=== PATIENT | female | born 1960 | race African-American/Black ===

== ENCOUNTER 2016-06-22 06:30 | Emergency (ER) | payer OTHER ==
[2016-06-22 07:36] LABS: #Basophils 0.2 thou/uL (0.0-0.2); #Eosinphils 1.1 thou/uL (0.0-0.7); #Lymphocytes 3.9 thou/uL (1.20-3.40); #Monocytes 0.6 thou/uL (0.11-0.59); #Neutrophils 8.4 thou/uL (1.40-6.50); %Basophils 1.1 % (0.0-1.0); %Eosinophils 7.8 % (0.0-10.0); %Lymphocytes 27.2 % (21.0-51.0); %Monocytes 4.4 % (0.0-10.0); %Neutrophils 59.5 % (42.0-75.0); Hemoglobin 14.3 g/dL (12.0-16.0); Mean Corpuscular HGB CONC 35.1 g/dL (32.0-36.0); Mean Corpuscular Hemoglobin 30.9 pg (27.0-31.0); Mean Corpuscular Volume 88.2 fl (81.0-99.0); Mean Platelet Volume 10.3 fL (7.4-10.4); Platelet Count 271 thou/uL (130-400); RBC Distribution Width 12.6 % (11.5-14.5); Red Blood Cell (RBC) Count 4.62 mill/uL (4.20-5.40); White Blood Cell (WBC) Count 14.2 thou/uL (4.8-10.8)
[2016-06-22] MEDS ORDERED: cefTRIAXone\\ROCEPHIN 1 GM VIAL ONE ×2 (07:40→08:17)
[2016-06-22] MEDS ORDERED: methylPREDNISolone Sod Succ/PF 125 MG/2 ML VIAL ONE (07:40)
[2016-06-22] MEDS ORDERED: Dexamethasone 10 MG/ML VIAL ONE (07:40)
[2016-06-22 07:41] LABS: ALT (SGPT) 21 U/L (0-55); AST (SGOT) 24 U/L (5-34); Albumin 4.6 g/dL (3.5-5.0); Alkaline Phosphatase 85 U/L (40-150); Anion Gap 21 mmol/L (10-20); BUN (Urea Nitrogen) 6 mg/dL (9.8-20.1); Bilirubin, Total 0.5 mg/dL (0.2-1.2); Calc. Creatinine Clearance 0 mL/min (70-130); Calcium 9.4 mg/dL (7.8-10.44); Carbon Dioxide 22 mmol/L (22-29); Chloride 102 mmol/L (98-107); Estimated GFR-MDRD 89; Globulin 3.1 g/dL (2.4-3.5); Glucose 106 mg/dL (70-105); Potassium 4.6 mmol/L (3.5-5.1); Protein, Total 7.7 g/dL (6.0-8.3); Sodium 140 mmol/L (136-145)
[2016-06-22] MEDS ORDERED: Sodium Chloride 0.9% 100 ML BAG ONE (07:43)
[2016-06-22] MEDS ORDERED: Sodium Chloride 0.9% 1,000 ML BAG ONE (07:43)
[2016-06-22] MEDS ORDERED: Magnesium Sulfate 2 GM/NS 0.9% 50 ML BAG ONE (07:44)
--- NOTE | 2016-06-22 07:46 | RAD ---
TWO VIEWS CHEST: HISTORY: Dyspnea. FINDINGS: PA and lateral views of the chest were obtained. The lungs are well aerated. No evidence of active intrathoracic disease seen. No evidence of effusions, pneumonia, or pneumothorax is seen. IMPRESSION: Unremarkable 2 views chest. POS: [facility]
[2016-06-22] MEDS ORDERED: AMOXicillin 250 MG CAP ONE (08:17)
[2016-06-22] MEDS ORDERED: Benzonatate 100 MG CAP ONE (08:17)
--- NOTE | 2016-06-22 09:31 | ERRECORD ---
[facility] EM[facility]GENCY RECORD HPI SHORTNESS OF BREATH (07:07 LLDO) CHIEF COMPLAINT: Patient presents for evaluation of shortness of breath, Denies chest pain, Patient presents for evaluation of been sick about 3 weeks. just over 2 weeks ago was seen elsewhere and given a shot of steroids and a Z-lis. no better at all. frequent cough and wheezing most of the time. very feverish at times but temp not taken. headache and sore throat, but thinks s.t. d.t. harsh coughing. general fatigue and malaise. has not had this problem before. HISTORIAN: History provided by patient. LOCATION: Symptoms are generalized. QUALITY: Symptoms described as tightness, Symptoms described as wheezing. SEVERITY: Maximum severity of symptoms moderate, Currently symptoms are moderate, Maximum severity of pain rated as 7/10, Current severity of pain rated as 2/10. TIME COURSE: Gradual onset of symptoms, Symptoms are worsening, are constant. ASSOCIATED WITH: Associated with cough, Associated with dyspnea on exertion, Associated with fever, Associated with upper respiratory infection, Associated with wheezing. EXACERBATED BY: Patient's condition exacerbated by deep breaths, Patient's condition exacerbated by exercise, Patient's condition exacerbated by lying flat. RELIEVED BY: Patient's condition relieved by nothing. RISK FACTORS: No coronary artery disease risk factors, No thoracic aortic dissection risk factors, No pulmonary embolism risk factors. ROS CONSTITUTIONAL: Historian reports fatigue, reports malaise, reports weakness. (07:11 LLDO) EYES: Negative eye review of systems, Historian denies eye pain, denies eye redness, denies eye discharge. (07:17 LLDO) ENT: Historian reports sore throat. (07:11 LLDO) CARDIOVASCULAR: Historian reports dyspnea on exertion. (07:11 LLDO) RESPIRATORY: Historian reports cough, reports sputum. described as thick, yellow, Historian reports wheezing. (07:11 LLDO) GI: Historian reports anorexia, reports appetite changes, denies constipation, denies diarrhea, reports nausea, denies vomiting. (07:11 LLDO) GENITOURINARY FEMALE: Negative genitourinary review of systems, Historian denies dysuria, denies frequency, denies urgency. (07:17 LLDO) MUSCULOSKELETAL: Historian reports myalgias. (07:11 LLDO) SKIN: Negative skin review of systems, Historian denies cellulitis, denies rash, denies skin changes, denies skin lesions. (07:17 LLDO) NEUROLOGIC: Historian denies confusion, denies dizziness, denies &a-1R&a+25V*p+0X*p3428Z*c152B*c15G*c2P*p-0X&a-25V&a+1RName: Shivani Paz : 1960 F55 MedRec: [id number] AcctNum: [id number] Prepared: ThuJun 23, 2016 05:43 by Interface Page 1 of 5 pMD [facility] RECORD dysphasia, denies focal weakness, denies gait changes, reports headache, denies irritability, denies lethargy, denies mental status changes. (07:17 LLDO) HEMO/LYMPHATIC: Normal hematologic/lymphatic system review, Historian denies abnormal blood clotting, denies gum bleeding, denies petechiae. (07:17 LLDO) ALLERGIC/IMMUNOLOGIC: Normal allergy/immunologic system review, Historian denies eczema, denies environmental allergies, denies food allergies. (07:17 LLDO) PSYCHIATRIC: Negative psychiatric review of systems, Historian denies alcohol abuse, denies anxiety, denies depression, denies drug abuse, denies hallucinations. (07:17 LLDO) NOTES: All systems reviewed, negative except as described above. (07:11 LLDO) PAST MEDICAL HISTORY MEDICAL HISTORY: No past medical history. (06:46 JDEA) FEMALE SURGICAL HISTORY: Patient has no surgical history. (06:46 JDEA) PSYCHIATRIC HISTORY: No previous psychiatric history. (06:46 JDEA) SOCIAL HISTORY: Patient denies alcohol use, Patient denies drug use, Patient has no smoking history, Lives at home, with family. (06:46 JDEA) NOTES: Nursing records reviewed, Agree with nursing records, Medication list reviewed. (07:16 LLDO) KNOWN ALLERGIES NKDA CURRENT MEDICATIONS (06:41 JDEA) None VITAL SIGNS VITAL SIGNS: BP: 146/78, Pulse: 107, Resp: 22, Pain: 2, O2 sat: 97 on Room Air, Time: 06/22/2016 06:38. (06:38 JDEA) BP: 151/85, Pulse: 95, Resp: 21, Temp: 99 (Tympanic), Pain: 0, O2 sat: 97 on Room Air, Time: 06/22/2016 07:00. (07:00 JPER) BP: 112/82, Pulse: 95, Resp: 25, O2 sat: 98 on Room Air, Time: 06/22/2016 07:15. (07:15 JPER) BP: 126/76, Pulse: 78, Resp: 21, O2 sat: 98 on Room Air, Time: 06/22/2016 07:30. (07:30 JPER) BP: 125/64, Pulse: 78, Resp: 21, O2 sat: 99 on Room Air, Time: 06/22/2016 07:45. (07:45 JPER) BP: 117/77, Pulse: 96, Resp: 20, Temp: 98.4 (Tympanic), O2 sat: 98 on Room Air, Time: 06/22/2016 08:00. (08:00 JPER) BP: 119/55, Pulse: 77, Resp: 13, Temp: 98.4 (Tympanic), O2 sat: 99 on Room Air, Time: 06/22/2016 08:15. (08:15 JPER) BP: 119/69, Pulse: 76, Resp: 15, Temp: 98.4 (Tympanic), O2 sat: 99 on Room Air, Time: 06/22/2016 09:00. (09:00 JPER) &a-1R&a+25V*p+0X*t0414P*c152B*c15G*c2P*p-0X&a-25V&a+1RName: Shivani Paz : 1960 F55 MedRec: [id number] AcctNum: [id number] Prepared: ThuJun 23, 2016 05:43 by Interface Page 2 of 5 pMD [facility] REC[facility] PHYSICAL EXAM CONSTITUTIONAL: Vital Signs Reviewed, Patient afebrile, Pulse, tachycardic, 107, Blood pressure normal, Respiratory rate normal, Normal pulse oximetry, Patient appears, uncomfortable, Patient appears, in moderate pain distress, Patient alert and oriented to person, place and time, Nursing notes reviewed. (07:14 LLDO) HEAD: Head exam normal, Head exam included findings of head atraumatic, normocephalic. (07:17 LLDO) EYES: Eye exam normal, Eye exam included findings of eyelids normal to inspection, Pupils equally round and reactive to light, Extraocular muscles intact. (07:17 LLDO) ENT: Ear exam normal, Nose exam normal, Pharynx, injected bilaterally, with swelling bilaterally, Uvula exam normal, Sinus exam included findings of frontal sinuses normal, maxillary sinuses normal. (07:14 LLDO) NECK: Neck exam included findings of normal range of motion, Trachea midline, Thyroid normal, no meningeal signs, Cervical adenopathy, diffuse, multiple nodes, tender, swollen. (07:14 LLDO) RESPIRATORY CHEST: Respiratory exam included findings of, mild respiratory distress, Wheezing present, Rales present, Breath sounds not absent, Breath sounds not diminished, Chest exam included findings of chest movement symmetrical, Chest expansion equal, no tenderness, WHEEZES MOD AND DIFFUSE AND RALES MODERATE AND DIFFUSE. (07:14 LLDO) CARDIOVASCULAR: Cardiovascular exam included findings of, rate tachycardic, rhythm regular. (07:14 LLDO) ABDOMEN FEMALE: Abdominal exam normal, Abdominal exam included findings of abdomen nontender, Bowel sounds normal, no peritoneal signs. (07:17 LLDO) BACK: Back exam normal, Back exam included findings of normal inspection, range of motion normal. (07:17 LLDO) UPPER EXTREMITY: Upper extremity exam normal, Upper extremity exam included findings of inspection normal, Range of motion normal. (07:17 LLDO) LOWER EXTREMITY: Lower extremity exam normal, Lower extremity exam included findings of inspection normal, Range of motion normal. (07:17 LLDO) NEURO: Neuro exam findings include patient oriented to person, place and time, Speech normal, Gait normal, Memory normal, Cranial nerves intact, Deep tendon reflexes normal, no focal motor deficits, no focal sensory deficits, no cerebellar deficits, no nystagmus. (07:17 LLDO) SKIN: Skin exam normal, Skin exam included findings of skin warm, dry, and normal in color, no rash. (07:17 LLDO) PSYCHIATRIC: Psychiatric exam normal, Psychiatric exam included findings of patient oriented to person place and time, Normal affect. (07:17 LLDO) RADIOLOGYINTERPRETATION (08:09 LLDO) &a-1R&a+25V*p+0X*q9859K*c152B*c15G*c2P*p-0X&a-25V&a+1RName: Shivani Paz : 1960 F55 MedRec: [id number] AcctNum: [id number] Prepared: ThuJun 23, 2016 05:43 by Interface Page 3 of 5 pMD [facility] RECORD RADIO SPORTSCASTER: Preliminary review of x-rays by, Radiologist, neg cxr, 2 view. MEDICATION ADMINISTRATION SUMMARY Drug Name: Guanakito Perles, Dose Ordered: 200 mg, Route: Oral, Status: Given, Time: 08:15 06/22/2016, Drug Name: amoxicillin, Dose Ordered: 500 mg, Route: Oral, Status: Given, Time: 08:15 06/22/2016, Drug Name: Rocephin intravenous, Dose Ordered: 1 g, Route: IV Piggy Back, Status: Given, Time: 07:57 06/22/2016, Drug Name: magnesium sulfate in water, Dose Ordered: 2 g, Route: IV Piggy Back, Status: Given, Time: 07:53 06/22/2016, Drug Name: Decadron injection, Dose Ordered: 10 mg, Route: IV Push, Status: Given, Time: 07:20 06/22/2016, Drug Name: Solu-MEDROL Mix-O-Vial, Dose Ordered: 125 mg, Route: IV Push, Status: Given, Time: 07:10 06/22/2016, Drug Name: DuoNeb, Dose Ordered: 1 inhalation, Route: Nebulize, Status: Given, Time: 07:05 06/22/2016, Drug Name: *sodium chloride 0.9 % intravenous, Dose Ordered: 1 L, Route: IV Fluid Infusion, Status: Given, Time: 07:05 06/22/2016, *Additional information available in notes, Detailed record available in Medication Service section. DOCTOR NOTES (08:09 LLDO) TEXT: pt says she feels vastly better and is now breathing easily with good air flow. exam still shows slight end-exp wheeze but much better than on arrival. to continue albuterol tabs but will add oral steroids and a stronger cough suppressant and new abx. PROBLEM LIST No recorded problems DIAGNOSIS (08:12 LLDO) FINAL: PRIMARY: asthmatic bronchitis. PRESCRIPTION (08:13 LLDO) amoxicillin: CAPSULE (HARD, SOFT, ETC.) : 500 mg : ORAL : Quantity: 1 Unit: cap(s) Route: ORAL Schedule: 3 times a day Dispense: 30 May substitute. Refills: No Refills . NOTES: No Refills. Phenergan-Codeine: SYRUP : : ORAL : Quantity: 1-2 Unit: teaspoon Route: ORAL Schedule: every 4 hours prn Dispense: 120 Unit: mL May substitute. Refills: 1 . NOTES: ^s=No Refills No Refills. predniSONE oral: TABLET : 20 mg : ORAL : Quantity: * Unit: Route: ORAL Schedule: See Notes Dispense: 2O May substitute. Refills: No Refills . &a-1R&a+25V*p+0X*r6653Y*c152B*c15G*c2P*p-0X&a-25V&a+1RName: Shivani Paz : 1960 F55 MedRec: [id number] AcctNum: [id number] Prepared: ThuJun 23, 2016 05:43 by Interface Page 4 of 5 pMD [facility] RECORD NOTES: 3 TABS PER DAY FOR 3 DAYS, THEN 2 TABS PER DAY FOR 3 DAYS, THEN ONE TAB PER DAY UNTIL GONE No Refills. DISPOSITION PATIENT: Disposition Type: Discharge, Disposition: *Discharge Home. (08:12 LLDO) Patient left the department. (09:27 ADDY) Clemens: JOSIAH=JERMAINE Reynolds, Claudia DALY=JERMAINE Melendrez, Suzanne LLDO=MD Dana, Gian &a-1R&a+25V*p+0X*w2069F*c152B*c15G*c2P*p-0X&a-25V&a+1RName: Shivani Paz : 1960 F55 MedRec: [id number] AcctNum: [id number] Prepared: ThuJun 23, 2016 05:43 by Interface Page 5 of 5 pMD MTDD
--- NOTE | 2016-06-22 09:38 | PICIS ---
[facility] EMERGENCY RECORD TRIAGE (ThuJun 22, 2016 06:39 JDEA) TRIAGE NOTES: in for c/o shortness of breath and wheezing, states was seen recently for same complaints and told she had bronchitis. (ThuJun 22, 2016 06:39 JDEA) PATIENT: NAME: Shivani Paz, AGE: 55, GENDER: female, : Sat 1960, TIME OF GREET: ThuJun 22, 2016 06:31, PREFERRED LANGUAGE: Armenian, ETHNICITY: Not or , [facility]: [facility], SSN: [id number], Zip Code: [address], KG WEIGHT: 86.18, PHONE: , , , PERSON ID: [id number], PCP: Valentín MAK BARRY. ([place] Jun 22, 2016 06:39 JDEA) COMPLAINT: SOB. ([place] Jun 22, 2016 06:39 JDEA) ADMISSION: URGENCY: 2 Emergent, ADMISSION SOURCE: Home, TRANSPORT: Walk-in, BED: TRIAGE. ([place] Jun 22, 2016 06:39 JDEA) IMMUNIZATIONS: Flu vaccine up to date, Tetanus immunization up to date, Pneumococcal vaccine not up to date. (06:46 JDEA) TRIAGE SCREENING: Patient denies suicidal ideation, Patient denies presence of domestic violence. (06:46 JDEA) LMP: LMP: Not Applicable. (06:46 JDEA) PROVIDERS: TRIAGE NURSE: Claudia Reynolds RN. ([place] Jun 22, 2016 06:39 JDEA) VITAL SIGNS: BP 146/78, Pulse 107, Resp 22, Pain 2, O2 Sat 97, on Room Air, Time 06/22/2016 06:38. (06:38 JDEA) KNOWN ALLERGIES NKDA CURRENT MEDICATIONS (06:41 JDEA) None VITAL SIGNS VITAL SIGNS: BP: 146/78, Pulse: 107, Resp: 22, Pain: 2, O2 sat: 97 on Room Air, Time: 06/22/2016 06:38. (06:38 JDEA) BP: 151/85, Pulse: 95, Resp: 21, Temp: 99 (Tympanic), Pain: 0, O2 sat: 97 on Room Air, Time: 06/22/2016 07:00. (07:00 JPER) BP: 112/82, Pulse: 95, Resp: 25, O2 sat: 98 on Room Air, Time: 06/22/2016 07:15. (07:15 JPER) BP: 126/76, Pulse: 78, Resp: 21, O2 sat: 98 on Room Air, Time: 06/22/2016 07:30. (07:30 JPER) BP: 125/64, Pulse: 78, Resp: 21, O2 sat: 99 on Room Air, Time: 06/22/2016 07:45. (07:45 JPER) BP: 117/77, Pulse: 96, Resp: 20, Temp: 98.4 (Tympanic), O2 sat: 98 on Room Air, Time: 06/22/2016 08:00. (08:00 JPER) BP: 119/55, Pulse: 77, Resp: 13, Temp: 98.4 (Tympanic), O2 sat: 99 on Room Air, Time: 06/22/2016 08:15. (08:15 JPER) BP: 119/69, Pulse: 76, Resp: 15, Temp: 98.4 (Tympanic), O2 sat: 99 on Room Air, Time: 06/22/2016 09:00. (09:00 JPER) NURSING ASSESSMENT: RESPIRATORY /CHEST (06:43 JDEA) CONSTITUTIONAL: Complex assessment performed, Patient arrives ambulatory, Gait steady, History obtained from patient, Patient &a-1R&a+25V*p+0X*f8670X*c152B*c15G*c2P*p-0X&a-25V&a+1RName: Marielena Paza : 1960 F55 MedRec: [id number] AcctNum: [id number] Prepared: ThuJun 23, 2016 05:49 by Interface Page 1 of 11 pMD [facility] EMERGENCY RECORD appears comfortable, Patient cooperative, Patient alert, Oriented to person, place and time, Skin warm, Skin dry, Skin normal in color, Mucous membranes pink, Mucous membranes moist, Patient complains of SHORTNESS OF BREATH, in for c/o shortness of breath and wheezing, states was seen recently for same complaints and told she had bronchitis. PAIN: on a scale 0-10 patient rates pain as 2, DENIES PAIN, STATES FEELS SHORT OF BREATH AT THIS TIME. RESPIRATORY/CHEST: Lungs auscultated, Breath sounds with wheezing, audibly, Respiratory assessment findings include respiratory effort easy, Respirations regular, Conversing normally, Neck and chest exam findings include trachea midline, Chest expansion equal, Chest movement symmetrical, no signs of distress, Associated with cough, dry, non-productive, Associated with fever, STATES HAS FELT WARM OFF AND ON THIS PAST WEEK. ENT: Ear assessment findings include ear normal to inspection, Nasal assessment findings include nose normal to inspection, Sinuses normal, Nasal mucosa normal, Mouth and throat assessment findings include mouth inspection normal, Uvula normal, Tonsils normal, Mucous membranes pink, and moist, Able to swallow, Speech normal. NOTES: Patient tolerated procedure well. SAFETY: Side rails up, Cart/Stretcher in lowest position, Call light within reach, Hospital ID band on. NURSING PROCEDURE: LUNG SPLITTER (06:41 JDEA) PATIENT IDENTIFIER: Patient actively involved in identification process, Patient's identity verified by patient stating name, Patient's identity verified by patient stating date, Patient's identity verified by hospital ID bracelet. LUNG SPLITTER: Cardiac monitoring indicated for ER INDICATION, Patient placed on prepress stripper, Patient placed on non-invasive blood pressure monitor, Patient placed on continuous pulse oximetry. FOLLOW-UP: After procedure, alarms set and on. NOTES: Patient tolerated procedure well. SAFETY: Side rails up, Cart/Stretcher in lowest position, Call light within reach, Hospital ID band on. NURSING PROCEDURE: DISCHARGE NOTE (09:10 JPER) DISCHARGE: Patient discharged to home, ambulating without assistance, driving self, unaccompanied, Summary of Care printed/ provided, Patient requested and was provided an electronic copy of Discharge Instructions, Transition record given to patient, Discharge instructions given to patient, Prescriptions given and instructions on side effects given, Above person(s) verbalized understanding of discharge instructions and follow-up care, Patient treated and evaluated by physician. BELONGINGS: Belongings remain with patient, Valuables remain with patient. NOTES: Emotional support needed and given, Patient tolerated procedure well. &a-1R&a+25V*p+0X*r1300D*c152B*c15G*c2P*p-0X&a-25V&a+1RName: Shivani Paz : 1960 F55 MedRec: [id number] AcctNum: [id number] Prepared: ThuJun 23, 2016 05:49 by Interface Page 2 of 11 [facility] EMERGENCY RECORD NURSING PROCEDURE: EKG CHART (07:45 JPER) PATIENT IDENTIFIER: Patient's identity verified by patient stating name, Patient's identity verified by hospital ID bracelet. EKG: EKG indicated for SOB, 12 lead EKG performed on the left chest, done by BERKLEY DEAN, first EKG. FOLLOW-UP: After procedure, EKG for interpretation given to Dr. CORTEZ. NOTES: Emotional support needed and given. NURSING PROCEDURE: IV PATIENT IDENITIFIER: Patient's identity verified by patient stating name, Patient's identity verified by hospital ID bracelet. (07:00 JPER) Patient's identity verified by patient stating name, Patient's identity verified by hospital ID bracelet. (09:10 JPER) IV SITE 1: IV therapy indicated for hydration, IV therapy indicated for medication administration, IV therapy indicated for lab draw, IV established, to the left hand, using a 20 gauge catheter, in one attempt, IV site prepped with chloroprep, Saline lock established, Labs drawn at time of placement, labeled in the presence of the patient and sent to lab, Blood cultures drawn at time of placement, labeled in the presence of the patient and sent to lab. (07:00 JPER) FOLLOW-UP SITE 1: After procedure, sterile transparent dressing applied. (07:00 JPER) After procedure, no drainage at IV site, After procedure, no swelling at IV site, After procedure, no redness at IV site, IV discontinued, due to patient being discharged, catheter intact. (09:10 JPER) NOTES: Emotional support needed and given, Patient tolerated procedure well. (07:00 JPER) Emotional support needed and given. (09:10 JPER) SAFETY: Side rails up, Cart/Stretcher in lowest position, Family at bedside, Call light within reach, Hospital ID band on. (07:00 JPER) NURSING PROCEDURE: NURSE NOTES NURSES NOTES: Notes: Report to [facility] at this time, pt in bed, no change from previous, denies needs for further assist at this time. (06:48 JDEA) Notes: Report to [facility] at this time, pt in bed, no change from previous, denies needs for further assist at this time. (06:49 JDEA) ORDER DETAILS Order Name: B type Natriuretic Peptide, Status: Active, Time: 06:50 06/22/2016, User: AMEYA, - Ordered for: MD Cortez Lloyd, - Entered by: MD Cortez Lloyd - Sun Jun 22, 2016 06:50, - Quantity: 1, &a-1R&a+25V*p+0X*n3794Q*c152B*c15G*c2P*p-0X&a-25V&a+1RName: Shivani Paz : 1960 F55 MedRec: [id number] AcctNum: [id number] Prepared: ThuJun 23, 2016 05:49 by Interface Page 3 of 11 [facility] EMERGENCY RECORD Order Name: CBC with Differential, Status: Active, Time: 06:49 06/22/2016, User: AMEYA, - Ordered for: MD Cortez Lloyd, - Entered by: MD Cortez Lloyd - Sun Jun 22, 2016 06:49, - Quantity: 1, Order Name: Comprehensive Metabolic Panel, Status: Active, Time: 06:49 06/22/2016, User: LL, - Ordered for: MD Cortez Lloyd, - Entered by: MD Cortez Lloyd - Sun Jun 22, 2016 06:49, - Quantity: 1, Order Name: EKG 12 Lead in Emergency Room, Status: Active, Time: 06:50 06/22/2016, User: LL, - Ordered for: MD Cortez Lloyd, - Entered by: MD Cortez Lloyd - Sun Jun 22, 2016 06:50, - Quantity: 1, Order Name: ERRT * Smal Vol Neb Initial Trmt, Status: Active, Time: 06:48 06/22/2016, User: AMEYA, - Ordered for: MD Cortez Lloyd, - Entered by: MD Cortez Lloyd - Sun Jun 22, 2016 06:48, - Quantity: 1, Order Name: ERRT Small Vol Neb Sub Trmt, Status: Active, Time: 06:48 06/22/2016, User: AMEYA, - Ordered for: MD Cortez Lloyd, - Entered by: MD Cortez Lloyd - Sun Jun 22, 2016 06:48, - Quantity: 1, Order Name: SALINE LOCK, Status: Done, Time: 07:43 06/22/2016, User: JPJOSE, - Ordered for: MD Cortez Lloyd, - Entered by: MD Cortez Lloyd - Sun Jun 22, 2016 06:50, - Quantity: 1, Order Name: XR Chest Pa & Lat STANDARD, Status: Active, Time: 06:49 06/22/2016, User: AMEYA, - Ordered for: MD Cortez Lloyd, - Entered by: MD Cortez Lloyd - Sun Jun 22, 2016 06:49, - Quantity: 1. MEDICATION ADMINISTRATION SUMMARY Drug Name: Tessalon Perles, Dose Ordered: 200 mg, Route: Oral, Status: Given, Time: 08:15 06/22/2016, Drug Name: amoxicillin, Dose Ordered: 500 mg, Route: Oral, Status: Given, Time: 08:15 06/22/2016, Drug Name: Rocephin intravenous, Dose Ordered: 1 g, Route: IV Piggy Back, Status: Given, Time: 07:57 06/22/2016, Drug Name: magnesium sulfate in water, Dose Ordered: 2 g, Route: IV Piggy Back, Status: Given, Time: 07:53 06/22/2016, Drug Name: Decadron injection, Dose Ordered: 10 mg, Route: IV Push, Status: Given, Time: 07:20 06/22/2016, Drug Name: Solu-MEDROL Mix-O-Vial, Dose Ordered: 125 mg, Route: IV Push, Status: Given, Time: 07:10 06/22/2016, Drug Name: DuoNeb, Dose Ordered: 1 inhalation, Route: Nebulize, &a-1R&a+25V*p+0X*x6762X*c152B*c15G*c2P*p-0X&a-25V&a+1RName: Shivani Paz : 1960 F55 MedRec: [id number] AcctNum: [id number] Prepared: ThuJun 23, 2016 05:49 by Interface Page 4 of 11 pMD [facility] EMERGENCY RECORD Status: Given, Time: 07:05 06/22/2016, Drug Name: *sodium chloride 0.9 % intravenous, Dose Ordered: 1 L, Route: IV Fluid Infusion, Status: Given, Time: 07:05 06/22/2016, *Additional information available in notes, Detailed record available in Medication Service section. MEDICATION SERVICE amoxicillin: Order: amoxicillin (amoxicillin trihydrate) - Dose: 500 mg : Oral Schedule: Now Ordered by: Gian Cortez MD Entered by: MD Sara Stack Jun 22, 2016 08:14 Documented as given by: JERMAINE Huerta Jun 22, 2016 08:15 Patient, Medication, Dose, Route and Time verified prior to administration. Amount given: 500MG, Site: Medication administered P.O., Correct patient, time, route, dose and medication confirmed prior to administration, Patient advised of actions and side-effects prior to administration, Allergies confirmed and medications reviewed prior to administration, Administered by BERKLEY DEAN. Decadron injection: Order: Decadron injection (dexamethasone sod phosphate) - Dose: 10 mg : IV Push Schedule: Now Ordered by: Gian Cortez MD Entered by: MD Sara Stack Jun 22, 2016 06:53 Documented as given by: JERMAINE Huerta Jun 22, 2016 07:20 Patient, Medication, Dose, Route and Time verified prior to administration. Amount given: 10mg, IV SITE #1 IVP, subsequent different medication, Slowly, Catheter placement confirmed via flush prior to administration, IV site without signs or symptoms of infiltration during medication administration, No swelling during administration, No drainage during administration, IV flushed after administration, Correct patient, time, route, dose and medication confirmed prior to administration, Patient advised of actions and side-effects prior to administration, Allergies confirmed and medications reviewed prior to administration, Administered by berkley dean. DuoNeb: Order: DuoNeb (ipratropium bromide/albuterol sulfate) - Dose: 1 inhalation : Nebulize Schedule: Every 5 minutes Repeat: 3 DOSES Ordered by: Gian Cortez MD Entered by: MD Sara Stack Jun 22, 2016 06:53 Documented as given by: JERMAINE Huerta Jun 22, 2016 07:05 Patient, Medication, Dose, Route and Time verified prior to administration. Amount given: 3ml, Site: Medication administered via Hand-held nebulizer, With oxygen, Administered by berkley dean. : Follow Up : PT CONT TO HAVE AUDIBLE WHEEZING TO ALL LAGUERRE. (09:17 JPER) : Follow Up : PT CONT TO HAVE AUDIBLE WHEEZING TO ALL [id number] PT CONT TO WHEEZE ALL LAGUERRE. (09:23 JPER) &a-1R&a+25V*p+0X*i8204J*c152B*c15G*c2P*p-0X&a-25V&a+1RName: Shivani Paz : 1960 F55 MedRec: [id number] AcctNum: [id number] Prepared: ThuJun 23, 2016 05:49 by Interface Page 5 of 11 D [facility] EMERGENCY RECORD : Follow Up : PT CONT TO HAVE AUDIBLE WHEEZING TO ALL [id number] PT CONT TO WHEEZE ALL LAGUERRE 0745 LUNG SOUNDS MUCH IMPROVED, WHEEZING DECREASED THROUGHOUT; PT SAYS SHE IS MUCH IMPROVED. (09:24 JPER) magnesium sulfate in water: Order: magnesium sulfate in water (magnesium sulfate/water for injection,sterile) - Dose: 2 g : IV Piggy Back Schedule: Now Ordered by: Gian Cortez MD Entered by: MD Sara Stack Jun 22, 2016 06:59 Documented as given by: JERMAINE Huerta Jun 22, 2016 07:53 Patient, Medication, Dose, Route and Time verified prior to administration. Amount given: 2gm, IV SITE #1 IVPB or drip, subsequent infusion, Premixed, on an IV pump, via secondary tubing, at 150 ml/hr, Catheter placement confirmed via flush prior to administration, IV site without signs or symptoms of infiltration during medication administration, No swelling during administration, No drainage during administration, IV flushed after administration, Correct patient, time, route, dose and medication confirmed prior to administration, Patient advised of actions and side-effects prior to administration, Allergies confirmed and medications reviewed prior to administration, Administered by berkley dean, Patient in position of comfort, Side rails up, Cart in lowest position. : Follow Up : _IV SITE #1:_, Medication infusion discontinued, on ThuJun 22, 2016 08:15, 25 minutes, ., Total amount infused: 2GMS, IV Line flushed after administration. (09:18 JPER) Rocephin intravenous: Order: Rocephin intravenous (ceftriaxone sodium) - Dose: 1 g : IV Piggy Back Schedule: Now Ordered by: Gian Cortez MD Entered by: Gian Cortez MD [place] Jun 22, 2016 06:53 Documented as given by: Suzanne Melendrez RN [place] Jun 22, 2016 07:57 Patient, Medication, Dose, Route and Time verified prior to administration. Amount given: 1gm, IV SITE #1 IVPB or drip, subsequent infusion, IVPB mixed in: 100ml, Fluid: 0.9NS, via primary tubing, on an IV pump, at 200 ml/hr, Catheter placement confirmed via flush prior to administration, IV site without signs or symptoms of infiltration during medication administration, No swelling during administration, No drainage during administration, IV flushed after administration, Correct patient, time, route, dose and medication confirmed prior to administration, Patient advised of actions and side-effects prior to administration, Allergies confirmed and medications reviewed prior to administration, Administered by berkley dean. : Follow Up : _IV SITE #1:_, Medication infusion discontinued, on ThuJun 22, 2016 08:35, 40 minutes, ., Total amount infused: 1GM, IV Line flushed after administration. (09:18 JPER) sodium chloride 0.9 % intravenous: Order: sodium chloride 0.9 % intravenous (0.9 % sodium chloride) - Dose: 1 L : IV Fluid Infusion &a-1R&a+25V*p+0X*w6275B*c152B*c15G*c2P*p-0X&a-25V&a+1RName: Shivani Paz : 1960 F55 MedRec: [id number] AcctNum: [id number] Prepared: ThuJun 23, 2016 05:49 by Interface Page 6 of 11 pMD [facility] EMERGENCY RECORD Notes: (Bolus) after bolus, lock Ordered by: Gian Cortez MD Entered by: Gian Cortez MD [place] Jun 22, 2016 06:54 Documented as given by: Suzanne Melendrez RN [place] Jun 22, 2016 07:05 Patient, Medication, Dose, Route and Time verified prior to administration. Amount given: 1000ml, IV SITE #1 IV fluids established for hydration, IV SITE #1 into left hand, IV SITE #1 1st bag hung, amount 1 Liter hung, IV SITE #1 bolus of 1000 ml established, IV SITE #1 Rate of bolus, 1000 ml/hr, via primary tubing, IV SITE #1 on IV pump, Catheter placement confirmed via flush prior to administration, IV site without signs or symptoms of infiltration during medication administration, No swelling during administration, No drainage during administration, IV flushed after administration, Correct patient, time, route, dose and medication confirmed prior to administration, Patient advised of actions and side-effects prior to administration, Allergies confirmed and medications reviewed prior to administration, Administered by berkley dean. : Follow Up : _IV SITE #1:_, IV fluid infusion discontinued, on [place] Jun 22, 2016 09:10, Total fluid hydration time IV site 1 2 hours, 5 minutes, ., Total amount infused: 1000ML, IV Discontinued with catheter intact. (09:20 JPER) Solu-MEDROL Mix-O-Vial: Order: Solu-MEDROL Mix-O-Vial (methylprednisolone sod succ) - Dose: 125 mg : IV Push Schedule: Now Ordered by: Gian Cortez MD Entered by: MD Sara Stack Jun 22, 2016 06:53 Documented as given by: JERMAINE Huerta Jun 22, 2016 07:10 Patient, Medication, Dose, Route and Time verified prior to administration. Amount given: 125mg, IV SITE #1 IVP, initial medication, Slowly, Catheter placement confirmed via flush prior to administration, IV site without signs or symptoms of infiltration during medication administration, No swelling during administration, No drainage during administration, IV flushed after administration, Correct patient, time, route, dose and medication confirmed prior to administration, Patient advised of actions and side-effects prior to administration, Allergies confirmed and medications reviewed prior to administration, Administered by berkley dean. Tessalon Perles: Order: Tessalon Perles (benzonatate) - Dose: 200 mg : Oral Schedule: Now Ordered by: Gian Cortez MD Entered by: MD Sara Stack Jun 22, 2016 08:14 Documented as given by: JERMAINE Huerta Jun 22, 2016 08:15 Patient, Medication, Dose, Route and Time verified prior to administration. Amount given: 200MG, Site: Medication administered P.O., Correct patient, time, route, dose and medication confirmed prior to administration, Patient advised of actions and side-effects prior to administration, Allergies confirmed and medications reviewed prior to &a-1R&a+25V*p+0X*z8389K*c152B*c15G*c2P*p-0X&a-25V&a+1RName: Shivani Paz : 1960 F55 MedRec: [id number] AcctNum: [id number] Prepared: ThuJun 23, 2016 05:49 by Interface Page 7 of 11 pMD [facility] EMERGENCY RECORD administration, Administered by BERKLEY DEAN. HPI SHORTNESS OF BREATH (07:07 LLDO) CHIEF COMPLAINT: Patient presents for evaluation of shortness of breath, Denies chest pain, Patient presents for evaluation of been sick about 3 weeks. just over 2 weeks ago was seen elsewhere and given a shot of steroids and a Z-lis. no better at all. frequent cough and wheezing most of the time. very feverish at times but temp not taken. headache and sore throat, but thinks s.t. d.t. harsh coughing. general fatigue and malaise. has not had this problem before. HISTORIAN: History provided by patient. LOCATION: Symptoms are generalized. QUALITY: Symptoms described as tightness, Symptoms described as wheezing. SEVERITY: Maximum severity of symptoms moderate, Currently symptoms are moderate, Maximum severity of pain rated as 7/10, Current severity of pain rated as 2/10. TIME COURSE: Gradual onset of symptoms, Symptoms are worsening, are constant. ASSOCIATED WITH: Associated with cough, Associated with dyspnea on exertion, Associated with fever, Associated with upper respiratory infection, Associated with wheezing. EXACERBATED BY: Patient's condition exacerbated by deep breaths, Patient's condition exacerbated by exercise, Patient's condition exacerbated by lying flat. RELIEVED BY: Patient's condition relieved by nothing. RISK FACTORS: No coronary artery disease risk factors, No thoracic aortic dissection risk factors, No pulmonary embolism risk factors. ROS CONSTITUTIONAL: Historian reports fatigue, reports malaise, reports weakness. (07:11 LLDO) EYES: Negative eye review of systems, Historian denies eye pain, denies eye redness, denies eye discharge. (07:17 LLDO) ENT: Historian reports sore throat. (07:11 LLDO) CARDIOVASCULAR: Historian reports dyspnea on exertion. (07:11 LLDO) RESPIRATORY: Historian reports cough, reports sputum. described as thick, yellow, Historian reports wheezing. (07:11 LLDO) GI: Historian reports anorexia, reports appetite changes, denies constipation, denies diarrhea, reports nausea, denies vomiting. (07:11 LLDO) GENITOURINARY FEMALE: Negative genitourinary review of systems, Historian denies dysuria, denies frequency, denies urgency. (07:17 LLDO) MUSCULOSKELETAL: Historian reports myalgias. (07:11 LLDO) SKIN: Negative skin review of systems, Historian denies cellulitis, denies rash, denies skin changes, denies skin lesions. &a-1R&a+25V*p+0X*m6239R*c152B*c15G*c2P*p-0X&a-25V&a+1RName: Shivani Paz : 1960 F55 MedRec: [id number] AcctNum: [id number] Prepared: ThuJun 23, 2016 05:49 by Interface Page 8 of 11 pMD [facility] EMERGENCY RECORD (07:17 LLDO) NEUROLOGIC: Historian denies confusion, denies dizziness, denies dysphasia, denies focal weakness, denies gait changes, reports headache, denies irritability, denies lethargy, denies mental status changes. (07:17 LLDO) HEMO/LYMPHATIC: Normal hematologic/lymphatic system review, Historian denies abnormal blood clotting, denies gum bleeding, denies petechiae. (07:17 LLDO) ALLERGIC/IMMUNOLOGIC: Normal allergy/immunologic system review, Historian denies eczema, denies environmental allergies, denies food allergies. (07:17 LLDO) PSYCHIATRIC: Negative psychiatric review of systems, Historian denies alcohol abuse, denies anxiety, denies depression, denies drug abuse, denies hallucinations. (07:17 LLDO) NOTES: All systems reviewed, negative except as described above. (07:11 LLDO) PAST MEDICAL HISTORY MEDICAL HISTORY: No past medical history. (06:46 JDEA) FEMALE SURGICAL HISTORY: Patient has no surgical history. (06:46 JDEA) PSYCHIATRIC HISTORY: No previous psychiatric history. (06:46 JDEA) SOCIAL HISTORY: Patient denies alcohol use, Patient denies drug use, Patient has no smoking history, Lives at home, with family. (06:46 JDEA) NOTES: Nursing records reviewed, Agree with nursing records, Medication list reviewed. (07:16 LLDO) PHYSICAL EXAM CONSTITUTIONAL: Vital Signs Reviewed, Patient afebrile, Pulse, tachycardic, 107, Blood pressure normal, Respiratory rate normal, Normal pulse oximetry, Patient appears, uncomfortable, Patient appears, in moderate pain distress, Patient alert and oriented to person, place and time, Nursing notes reviewed. (07:14 LLDO) HEAD: Head exam normal, Head exam included findings of head atraumatic, normocephalic. (07:17 LLDO) EYES: Eye exam normal, Eye exam included findings of eyelids normal to inspection, Pupils equally round and reactive to light, Extraocular muscles intact. (07:17 LLDO) ENT: Ear exam normal, Nose exam normal, Pharynx, injected bilaterally, with swelling bilaterally, Uvula exam normal, Sinus exam included findings of frontal sinuses normal, maxillary sinuses normal. (07:14 LLDO) NECK: Neck exam included findings of normal range of motion, Trachea midline, Thyroid normal, no meningeal signs, Cervical adenopathy, diffuse, multiple nodes, tender, swollen. (07:14 LLDO) RESPIRATORY CHEST: Respiratory exam included findings of, mild respiratory distress, Wheezing &a-1R&a+25V*p+0X*s3816Y*c152B*c15G*c2P*p-0X&a-25V&a+1RName: Shivani Paz : 1960 F55 MedRec: [id number] AcctNum: [id number] Prepared: ThuJun 23, 2016 05:49 by Interface Page 9 of 11 pMD [facility] EMERGENCY RECORD present, Rales present, Breath sounds not absent, Breath sounds not diminished, Chest exam included findings of chest movement symmetrical, Chest expansion equal, no tenderness, WHEEZES MOD AND DIFFUSE AND RALES MODERATE AND DIFFUSE. (07:14 LLDO) CARDIOVASCULAR: Cardiovascular exam included findings of, rate tachycardic, rhythm regular. (07:14 LLDO) ABDOMEN FEMALE: Abdominal exam normal, Abdominal exam included findings of abdomen nontender, Bowel sounds normal, no peritoneal signs. (07:17 LLDO) BACK: Back exam normal, Back exam included findings of normal inspection, range of motion normal. (07:17 LLDO) UPPER EXTREMITY: Upper extremity exam normal, Upper extremity exam included findings of inspection normal, Range of motion normal. (07:17 LLDO) LOWER EXTREMITY: Lower extremity exam normal, Lower extremity exam included findings of inspection normal, Range of motion normal. (07:17 LLDO) NEURO: Neuro exam findings include patient oriented to person, place and time, Speech normal, Gait normal, Memory normal, Cranial nerves intact, Deep tendon reflexes normal, no focal motor deficits, no focal sensory deficits, no cerebellar deficits, no nystagmus. (07:17 LLDO) SKIN: Skin exam normal, Skin exam included findings of skin warm, dry, and normal in color, no rash. (07:17 LLDO) PSYCHIATRIC: Psychiatric exam normal, Psychiatric exam included findings of patient oriented to person place and time, Normal affect. (07:17 LLDO) EVENTS TRANSFER: Triage to Emergency Triage. (Sun Jun 22, 2016 06:39 JDEA) Emergency Triage to Main ED -02. (06:41 LLDO) Removed from Emergency Main ED -02. 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 DOCTOR NOTES (08:09 LLDO) TEXT: pt says she feels vastly better and is now breathing easily with good air flow. exam still shows slight end-exp wheeze but much better than on arrival. to continue albuterol tabs but will add oral steroids and a stronger cough suppressant and new abx. PROBLEM LIST No recorded problems DIAGNOSIS (08:12 LLDO) FINAL: PRIMARY: asthmatic bronchitis. DISPOSITION &a-1R&a+25V*p+0X*l7663X*c152B*c15G*c2P*p-0X&a-25V&a+1RName: Shivani Paz : 1960 F55 MedRec: [id number] AcctNum: [id number] Prepared: ThuJun 23, 2016 05:49 by Interface Page 10 of 11 pMD [facility] EMERGENCY RECORD PATIENT: Disposition Type: Discharge, Disposition: *Discharge Home. (08:12 LLDO) Patient left the department. (09:27 JPER) INSTRUCTION (08:15 LLDO) DISCHARGE: ASTHMATIC BRONCHITIS ADULT. FOLLOWUP: MD TIMOTHY, SYLVIE, [facility], [address] [place] [id number], [phone], Follow up with Primary Care Physician in 7-10 days. SPECIAL: Follow-up with your PCP. PRESCRIPTION (08:13 LLDO) amoxicillin: CAPSULE (HARD, SOFT, ETC.) : 500 mg : ORAL : Quantity: 1 Unit: cap(s) Route: ORAL Schedule: 3 times a day Dispense: 30 May substitute. Refills: No Refills . NOTES: No Refills. Phenergan-Codeine: SYRUP : : ORAL : Quantity: 1-2 Unit: teaspoon Route: ORAL Schedule: every 4 hours prn Dispense: 120 Unit: mL May substitute. Refills: 1 . NOTES: ^s=No Refills No Refills. predniSONE oral: TABLET : 20 mg : ORAL : Quantity: * Unit: Route: ORAL Schedule: See Notes Dispense: 2O May substitute. Refills: No Refills . NOTES: 3 TABS PER DAY FOR 3 DAYS, THEN 2 TABS PER DAY FOR 3 DAYS, THEN ONE TAB PER DAY UNTIL GONE No Refills. IMAGING *EKG: Image captured from scanner. (08:27 JPER) *DISCHARGE INSTRUCTIONS RECEIPT: Image captured from scanner. (09:14 JPER) *SUPPLY CHARGE SHEET: Image captured from scanner. (09:14 JPER) ADMIN (ThuJun 23, 2016 05:40 LLDO) DIGITAL SIGNATURE: MD Cortez Lloyd. Clemens: JOSIAH=JERMAINE Reynolds Justine JPER=JERMAINE Melendrez Jana LLDO=MD Cortez Lloyd &a-1R&a+25V*p+0X*c3273S*c152B*c15G*c2P*p-0X&a-25V&a+1RName: Shivani Paz : 1960 F55 MedRec: [id number] AcctNum: [id number] Prepared: ThuJun 23, 2016 05:49 by Interface Page 11 of 11 pMD [facility] MEDICATION RECONCILIATION You were seen in the Emergency Department on: ThuJun 22, 2016 KNOWN ALLERGIES NKDA MEDICATIONS GIVEN WHILE IN THE EMERGENCY DEPARTMENT DuoNeb (ipratropium bromide/albuterol sulfate) - Dose: 1 inhalation : Nebulize Rocephin intravenous (ceftriaxone sodium) - Dose: 1 gram(s) : IV Piggy Back Solu-MEDROL Mix-O-Vial (methylprednisolone sod succ) - Dose: 125 milligram(s) : IV Push Decadron injection (dexamethasone sod phosphate) - Dose: 10 milligram(s) : IV Push sodium chloride 0.9 % intravenous (0.9 % sodium chloride) - Dose: 1 liter(s) : IV Fluid Infusion magnesium sulfate in water (magnesium sulfate/water for injection,sterile) - Dose: 2 gram(s) : IV Piggy Back amoxicillin (amoxicillin trihydrate) - Dose: 500 milligram(s) : Oral Tessalon Perles (benzonatate) - Dose: 200 milligram(s) : Oral HOME MEDICATIONS None Notes from the emergency department Reviewed with patient PRESCRIPTIONS (3) Printed (3) amoxicillin : CAPSULE (HARD, SOFT, ETC.) : 500 mg : ORAL Quantity: 1, Unit: cap(s), Route: ORAL, Schedule: 3 times a day, Dispense: 30 Phenergan-Codeine : SYRUP : : ORAL Quantity: 1-2, Unit: teaspoon, Route: ORAL, Schedule: every 4 hours prn, Dispense: 120 Unit: milliliter(s) &a-1R&a+25V*p+0X*p3073N*c202B*c15G*c2P*p-0X&a-25V&a+1R Name: Shivani Paz : 1960 F55 MedRec: [id number] AcctNum: [id number] Prepared: ThuJun 23, 2016 05:49 by Interface Dayanara HARLEY
== END 2016-06-22 09:10 | disposition home or self-care (01) ==
LOC: MADERS 06:30
DX: J45.909 Unspecified asthma, uncomplicated (principal)
CPT/HCPCS: 36415; 71020; 80053; 83880; 85025; 93005; 94640; 96361; 96365; 96367; 96375; J0696; J1100; J2930; J3475; J7050; J7620

== ENCOUNTER 2016-10-07 15:35 | Outpatient (CLI) | payer OTHER ==
--- NOTE | 2016-10-07 17:22 | RAD ---
PA AND LATERAL VIEWS CHEST: HISTORY: Asthma. FINDINGS: Comparison is made with the exam of 08/10/16. The heart size is normal. The lungs are expanded without focal areas of consolidation, pneumothorax , or pleural effusions. No acute osseous abnormalities are seen. IMPRESSION: No radiographic evidence of acute cardiopulmonary process. POS: [facility]
== END 2016-10-07 15:36 | disposition home or self-care (01) ==
LOC: MADRAD 15:35
PROVIDERS: ATTEND Family Medicine
DX: J45.909 Unspecified asthma, uncomplicated (principal)
CPT/HCPCS: 71020

== ENCOUNTER 2019-03-23 13:16 | Emergency (ER) | payer OTHER ==
--- NOTE | 2019-03-23 15:08 | RAD ---
RIGHT HIP 2 VIEWS: Date: 03/23/19 HISTORY: Hip pain. FINDINGS: No evidence of fracture identified. Femoral head contour is normal. IMPRESSION: No acute osseous abnormality identified. POS: [facility]
[2019-03-23] MEDS ORDERED: Ketorolac Tromethamine 30 MG/ML VIAL ONE (15:22)
== END 2019-03-23 16:01 | disposition home or self-care (01) ==
LOC: MADERS 13:16
DX: M54.41 Lumbago with sciatica, right side (principal); J45.909 Unspecified asthma, uncomplicated; Z79.899 Other long term (current) drug therapy
CPT/HCPCS: 96372; J1885

== ENCOUNTER 2020-02-01 13:23 | Outpatient (CLI) | payer OTHER ==
--- NOTE | 2020-02-01 14:23 | RAD ---
CT PELVIS: 02/01/20 HISTORY: Pelvic pain. FINDINGS/IMPRESSION: No fracture, dislocation, or bony destruction is seen. There are degenerative changes in the lower rahel mbar spine. POS: OFF
--- NOTE | 2020-02-01 14:41 | RAD ---
Radiograph right hip 2 views: 02/01/2020 HISTORY: 59-year-old female with nontraumatic right hip pain FINDINGS: Femoral head contour maintained. Hip joint space maintained. No subcapital or large acetabular osteop hytes. No erosions. Vacuum joint phenomenon and mild sclerosis of bilateral SI joints. Mild vertical malalignment of symphysis pubis. IMPRESSION: 1. Unremarkable right hip joint. 2. Mild-moderate Osteoarthrosis of bilateral sacroiliac joints. 3. Malalignment of symphysis pubis
--- NOTE | 2020-02-01 14:46 | RAD ---
RADIOGRAPH LUMBAR SPINE 3 VIEWS: DATE: 02/01/2020 HISTORY: 59-year-old female with low back pain FINDINGS: There is a transitional level at the thoracolumbar junction. For the purposes of this report, the mos t caudal lumbar-type vertebra will be designated as L5, with L5-S1 having standard morphology. This would make the first nonrib-bearing vertebra T12 rather than L1 (bilaterally hypoplastic ribs). No sc oliosis. Vertebral body heights are maintained. The disc spaces are maintained at all levels from T10-11 to L2-3. L3-4: Mild disc space narrowing. L4-5: Bilateral facet DJD, especially severe on the right. Grade 1 anterolisthesis of L4 on L5. Moder ate disc space narrowing. L5-S1: Moderate disc space narrowing. IMPRESSION: 1) lower lumbar spondylosis. 2) facet osteoarthrosis, especially severe on the right, causing grade 1 spondylolisthesis, at L4-5. 3) moderate disc space narrowing at L4-5 and L5-S1.
== END 2020-02-01 13:24 | disposition home or self-care (01) ==
LOC: MADRAD 13:23
PROVIDERS: ATTEND Family Medicine
DX: M54.41 Lumbago with sciatica, right side (principal); M47.816 Spondylosis without myelopathy or radiculopathy, lumbar region; M48.061 Spinal stenosis, lumbar region without neurogenic claudication; M47.818 Spondylosis without myelopathy or radiculopathy, sacral and sacrococcygeal region; M48.07 Spinal stenosis, lumbosacral region
CPT/HCPCS: 72100; 72170

== ENCOUNTER 2021-01-09 11:14 | Emergency (ER) | payer OTHER ==
[2021-01-09] MEDS ORDERED: Sodium Chloride 0.9% 500 ML ONE (11:49)
[2021-01-09] MEDS ORDERED: methylPREDNISolone Sod Succ/PF 125 MG/2 ML VIAL ONE (11:49)
[2021-01-09 12:18] LABS: Hemoglobin 13.2 g/dL (12.0-16.0); Mean Corpuscular HGB CONC 31.7 g/dL (32.0-36.0); Mean Corpuscular Hemoglobin 28.5 pg (27.0-31.0); Mean Corpuscular Volume 89.9 fL (78.0-98.0); Mean Platelet Volume 11.2 fL (7.4-10.4); Platelet Count 259 thou/uL (130-400); RBC Distribution Width 12.4 % (11.5-14.5); Red Blood Cell (RBC) Count 4.62 mill/uL (4.20-5.40)
[2021-01-09 12:19] LABS: Band 4 % (5-11); Eosinophils 4 % (0-10); Lymphocytes 23 % (21-51); MDiff Complete? YES; Manual Diff?? YES; Monocytes 3 % (0-10); Neutrophil 66 % (42-75)
[2021-01-09 12:20] LABS: Anisocytosis SLIGHT = 6-15 cells (100X) (0-5/hpf); Platelet Morphology Comment Appears Adequate
[2021-01-09 12:25] LABS: ALT (SGPT) 20 U/L (8-55); AST (SGOT) 26 U/L (5-34); Albumin 4.2 g/dL (3.5-5.0); Alkaline Phosphatase 71 U/L (40-110); Anion Gap 17 mmol/L (10-20); BUN (Urea Nitrogen) 4 mg/dL (9.8-20.1); Bilirubin, Total 0.3 mg/dL (0.2-1.2); Calc. Creatinine Clearance 0 mL/min (70-130); Calcium 9.1 mg/dL (7.8-10.44); Carbon Dioxide 23 mmol/L (22-29); Chloride 103 mmol/L (98-107); Globulin 3.3 g/dL (2.4-3.5); Glucose 102 mg/dL (70-105); Lipase 34 U/L (8-78); Potassium 4.2 mmol/L (3.5-5.1); Protein, Total 7.5 g/dL (6.0-8.3); Sodium 139 mmol/L (136-145)
== END 2021-01-09 13:07 | disposition home or self-care (01) ==
LOC: MADERS 11:14
DX: J45.901 Unspecified asthma with (acute) exacerbation (principal); J32.9 Chronic sinusitis, unspecified; Z79.899 Other long term (current) drug therapy
CPT/HCPCS: 71046; 80053; 83690; 83880; 84484; 85025; 93005; 94640; 94760; 96374; J2930; J7030; J7620

== ENCOUNTER 2021-02-20 11:59 | Outpatient (CLI) | payer OTHER | END 2021-02-20 12:00 | disposition home or self-care (01) | LOC: MADRAD 11:59 | PROVIDERS: ATTEND Family Medicine | DX: M25.511 Pain in right shoulder (principal); M79.18 Myalgia, other site; M19.011 Primary osteoarthritis, right shoulder ==

== ENCOUNTER 2021-12-12 11:53 | Outpatient (CLI) | payer OTHER | END 2021-12-12 11:54 | disposition home or self-care (01) | LOC: MADRAD 11:53 | PROVIDERS: ATTEND Family Medicine | DX: M25.512 Pain in left shoulder (principal); M19.012 Primary osteoarthritis, left shoulder ==

== ENCOUNTER 2022-08-28 14:28 | Outpatient (CLI) | payer OTHER | END 2022-08-28 14:29 | disposition home or self-care (01) | LOC: MADLABBHPM 14:28 → MADLAB 14:29 | PROVIDERS: ATTEND Family Medicine | DX: Z20.822 Contact with and (suspected) exposure to COVID-19 (principal) | CPT/HCPCS: U0003; U0005 ==

== ENCOUNTER 2023-01-22 14:53 | Emergency (ER) | payer OTHER | END 2023-01-22 14:54 | disposition left against medical advice (07) | LOC: MADERS 14:53 | DX: Z53.21 Procedure and treatment not carried out due to patient leaving prior to being seen by health care provider (principal) ==

== ENCOUNTER 2024-02-07 12:21 | Emergency (ER) | payer OTHER ==
[2024-02-07 13:14] LABS: SARS-CoV-2 E Target Positive; SARS-CoV-2 N2 Target Positive; SARS-CoV-2 NAA Rapid Test DETECTED (NotDetected); SARS-CoV-2 RdRP gene Positive
== END 2024-02-07 14:00 | disposition home or self-care (01) ==
LOC: MADERS 12:21
DX: U07.1 COVID-19 (principal)
CPT/HCPCS: 87804; 99283; U0002